=== PATIENT | male | born 1940 | race Caucasian/White ===

== ENCOUNTER 2021-03-28 18:05 | Emergency (ER) | payer MEDICARE, MEDICAID ==
[~2021-03-28] VITALS: Ht 182.9 cm; Wt 116.4 kg
[2021-03-28 22:43] LABS: BASOPHILS % (AUTO) 0.7 % (0.0-2.0); EOSINOPHILS % (AUTO) 1.8 % (1.0-6.0); HEMATOCRIT 45.8 % (41-53); HEMOGLOBIN 15.4 g/dL (13.5-17.5); LYMPHOCYTES # (AUTO) 1.4 K/uL (1.0-4.8); LYMPHOCYTES % (AUTO) 14.1 % (22.0-44.0); MEAN CORPUSCULAR HEMOGLOBIN 29.2 pg (26.0-34.0); MEAN CORPUSCULAR HGB CONC 33.7 G/dL (31.0-37.0); MEAN CORPUSCULAR VOLUME 87 fL (80-100); MONOCYTES # (AUTO) 0.9 K/uL (0.1-1.0); MONOCYTES % (AUTO) 9.4 % (2.0-9.0); NEUTROPHILS # (AUTO) 7.4 K/uL (1.8-7.7); PLATELET COUNT (AUTO) 179 K/uL (150-450); RED BLOOD CELL COUNT(AUTO) 5.28 MIL/uL (4.50-5.90); RED CELL DISTRIBUTION WIDTH 14.2 % (11.5-14.5)
[2021-03-28 22:46] LABS: GLUCOSE,POINT OF CARE 108 MG/DL (70-110)
[2021-03-28 22:49] LABS: CALCIUM, TOTAL 9.1 mg/dL (8.8-10.5); CREATININE 1.19 mg/dL (0.60-1.30); POTASSIUM 3.8 mmol/L (3.5-5.1)
[2021-03-28 22:54] LABS: ALBUMIN 3.7 g/dL (3.4-5.0); BILIRUBIN,TOTAL 0.5 mg/dL (0.1-1.0); TOTAL PROTEIN, SERUM 7.3 g/dL (6.4-8.2)
[2021-03-29 00:14] LABS: APPEARANCE,URINE CLEAR (CLEAR); BILIRUBIN,URINE NEGATIVE (NEGATIVE); GLUCOSE, URINE (UA) NEGATIVE (NEGATIVE); KETONES,URINE NEGATIVE (NEGATIVE); LEUKOCYTE ESTERASE ,URINE SMALL (NEGATIVE); NITRATE,URINE NEGATIVE (NEGATIVE); OCCULT BLOOD,URINE LARGE (NEGATIVE); PROTEIN,URINE NEGATIVE (NEGATIVE); UROBILINOGEN,URINE 0.2 mg/dL (<=1.0)
[2021-03-29 00:26] LABS: BACTERIA,URINE Few /HPF (None Seen)
[2021-03-29 02:37] VITALS: BP 154/80
== END 2021-03-29 07:46 | disposition home or self-care (01) ==
LOC: EMS 18:07
DX: N20.9 Urinary calculus, unspecified (principal); N39.0 Urinary tract infection, site not specified; L24.9 Irritant contact dermatitis, unspecified cause
CPT/HCPCS: 74176; 80053; 81001; 82962; 83690; 85025; 99284